=== PATIENT | female | born 1965 | race Caucasian/White ===

== ENCOUNTER 2018-01-02 13:33 | Emergency (ER) | payer OTHER ==
[2018-01-02] MEDS: ACETAMINOPHEN 500 MG TAB PO (14:28)
[2018-01-02] MEDS: IBUPROFEN 200 MG TAB PO (14:28)
== END 2018-01-02 15:44 | disposition home or self-care (01) ==
LOC: FTE 13:33
DX: S90.32XA Contusion of left foot, initial encounter (principal); W22.8XXA Striking against or struck by other objects, initial encounter; Y92.89 Other specified places as the place of occurrence of the external cause
CPT/HCPCS: 73610; 99283-25